=== PATIENT | male | born 1955 | race African-American/Black ===

== ENCOUNTER 2025-06-09 16:30 | Inpatient (IN) | payer OTHER ==
[~2025-06-09] VITALS: Ht 170.2 cm; Wt 88.6 kg
[2025-06-09 17:18] LABS: PLATELET COUNT (AUTO) 214 K/uL (150-450); RED BLOOD CELL COUNT(AUTO) 5.08 MIL/uL (4.50-5.90); RED CELL DISTRIBUTION WIDTH 15.9 % (11.5-14.5); WHITE BLOOD COUNT (AUTO) 11.1 K/uL (4.5-11.0)
[2025-06-09 17:28] LABS: CALCIUM, TOTAL 8.4 mg/dL (8.8-10.5); CREATININE 1.28 mg/dL (0.60-1.30); GLOMERULAR FILTR. RATE CALC > 60 mL/min (>60); GLUCOSE,RANDOM 98 mg/dL (70-110); SODIUM SERUM 145 mmol/L (136-145); UREA NITROGEN, BLOOD 13 mg/dL (7-18)
[2025-06-09 17:33] LABS: ASPARTATE AMINOTRANSFERASE 38 U/L (15-37); TOTAL PROTEIN, SERUM 7.1 g/dL (6.4-8.2)
[2025-06-09 17:37] LABS: LACTIC ACID 1.3 mmol/L (0.4-2.0)
[2025-06-09] MEDS ORDERED: 0.9% SODIUM CHLORIDE 10 ML SYRINGE IVP ONE (17:43)
[2025-06-09] MEDS ORDERED: SODIUM CHLORIDE 0.9% 100 ML ONE (17:43)
[2025-06-09] MEDS ORDERED: IOHEXOL 350 MG/ML 100 ML VIAL ONE (17:43)
[2025-06-09] MEDS: ONDANSETRON HCL 4 MG/2 ML VIAL IVP ONE (18:08)
[2025-06-09] MEDS: MORPHINE SULFATE 2 MG/ML SYRINGE IVP ONE (18:08)
[2025-06-09] MEDS: FAMOTIDINE 20 MG/2 ML VIAL IVP ONE (18:08)
[2025-06-09] MEDS ORDERED: BISMUTH SUBSALICYLATE 525 MG/30 ML SUSPENSION UDCUP PO PRN (18:15)
[2025-06-09] MEDS ORDERED: ZOLPIDEM TARTRATE 5 MG TABLET PO PRN (18:15)
[2025-06-09] MEDS ORDERED: ONDANSETRON HCL 4 MG/2 ML VIAL IVP PRN (18:15)
[2025-06-09] MEDS: SODIUM CHLORIDE 0.9% 1,000 ML IV ONE (18:55)
[2025-06-09] MEDS: FAMOTIDINE 20 MG TABLET PO SCH (20:09)
[2025-06-09 22:22] LABS: APPEARANCE,URINE CLEAR (CLEAR); GLUCOSE, URINE (UA) NEGATIVE (NEGATIVE); LEUKOCYTE ESTERASE ,URINE NEGATIVE (NEGATIVE); NITRATE,URINE NEGATIVE (NEGATIVE); OCCULT BLOOD,URINE NEGATIVE (NEGATIVE)
[2025-06-09 22:23] LABS: SPECIFIC GRAVITIY, URINE 1.030 (1.003-1.030)
[2025-06-09 23:16] VITALS: BP 130/77; PULSE 61; RESP 18; TEMP 98.2; O2SAT 100
[2025-06-09] MEDS: HEPARIN SODIUM,PORCINE 5,000 UNITS/ML VIAL SQ SCH (23:22)
[2025-06-10] MEDS ORDERED: LISI-894 PO (01:20)
[2025-06-10] MEDS ORDERED: ATOR20TA PO (01:20)
[2025-06-10] MEDS ORDERED: TAMS0.4C94 PO (01:20)
[2025-06-10] MEDS ORDERED: PANT-31 PO (01:20)
[2025-06-10] MEDS ORDERED: ALLO-97 PO (01:20)
[2025-06-10 05:16] VITALS: BP 117/76; PULSE 60; RESP 19; TEMP 97.7; O2SAT 98
[2025-06-10 08:28] VITALS: BP 140/83; PULSE 60; RESP 18; TEMP 98.1; O2SAT 100
[2025-06-10 11:06] LABS: PLATELET COUNT (AUTO) 191 K/uL (150-450); RED BLOOD CELL COUNT(AUTO) 4.78 MIL/uL (4.50-5.90); RED CELL DISTRIBUTION WIDTH 15.9 % (11.5-14.5); WHITE BLOOD COUNT (AUTO) 10.0 K/uL (4.5-11.0)
[2025-06-10 20:23] VITALS: BP 139/81; PULSE 77; RESP 20; TEMP 98.8; O2SAT 97
[2025-06-11 03:55] VITALS: BP 119/73; PULSE 65; RESP 18; TEMP 97.9; O2SAT 98
[2025-06-11] MEDS: PANTOPRAZOLE SODIUM 40 MG DR TABLET PO SCH (08:22)
[2025-06-11] MEDS: TAMSULOSIN HCL 0.4 MG CAPSULE PO SCH (08:22)
[2025-06-11 08:25] VITALS: BP 128/82; PULSE 78; RESP 18; TEMP 98.3; O2SAT 99
[2025-06-11] MEDS ORDERED: ACET-2247 PO (10:57)
[2025-06-11] MEDS ORDERED: BISM-157 PO (10:58)
[2025-06-11] MEDS: ACETAMINOPHEN 325 MG TABLET PO PRN (16:00)
[2025-06-11 20:13] VITALS: BP 140/85; PULSE 85; RESP 18; TEMP 98.8; O2SAT 100
== END 2025-06-11 20:46 | DRG 392 ==
LOC: EMS 16:30 → EDH 18:04 → 6S 22:42
PROVIDERS: ADMIT Internal Medicine; ATTEND Internal Medicine
DX: A08.4 Viral intestinal infection, unspecified (principal); Z94.4 Liver transplant status; I12.9 Hypertensive chronic kidney disease with stage 1 through stage 4 chronic kidney disease, or unspecified chronic kidney disease; E78.00 Pure hypercholesterolemia, unspecified; F10.20 Alcohol dependence, uncomplicated; K21.9 Gastro-esophageal reflux disease without esophagitis; G89.29 Other chronic pain; N18.30 Chronic kidney disease, stage 3 unspecified; Z90.49 Acquired absence of other specified parts of digestive tract; Z85.05 Personal history of malignant neoplasm of liver; Z87.891 Personal history of nicotine dependence
CPT/HCPCS: 74177; 76705; 80048; 80076; 81003; 83605; 83690; 85025; 85610; 85730; 86850; 86900; 86901; 87040; 96361; 96374; 96375; 99285; J1644; J2270; J2405; J3490; J7050; 36415-L1; 36415-TC